=== PATIENT | male | born 1965 | race Caucasian/White ===

== ENCOUNTER 2020-12-09 19:34 | Emergency (ER) | payer BC ==
--- NOTE | 2020-12-09 20:18 | RAD REPORT ---
EXAM DESCRIPTION: CT - Head Brain Wo Cont - 12/09/2020 8:02 pm CLINICAL HISTORY: headache, elevated blood pressure COMPARISON: No comparisons TECHNIQUE: Axial 5 mm thick images of the head were obtained without IV contrast. All CT scans are performed using dose optimization technique as appropriate and may include automated exposure control or mA/KV adjustment according to patient size. FINDINGS: No intracranial hemorrhage, mass, edema or shift of mid-line structures. No acute infarcti on changes seen. No abnormal extra-axial fluid collections. Ventricles are normal. Mastoid air cells and visualized portions of the paranasal sinuses are clear. No acute bony findings. IMPRESSION: Negative non-contrast CT head examination.
[2020-12-09] MEDS ORDERED: ACETAMINOPHEN 325 MG TABLET ONE (20:36)
[2020-12-09 20:38] LABS: Absolute Lymphocytes (CBC) 1.2 K/uL (0.7-4.9); Hematocrit 36.7 % (39.6-49.0); Lymphocytes % 15.7 % (15.3-44.8); MPV 8.5 fL (7.6-11.3); RBC Red Blood Cell Count 4.72 M/uL (4.33-5.43)
[2020-12-09 20:39] LABS: Protime INR 1.03
[2020-12-09] MEDS ORDERED: MORPHINE 2 MG/ML SYR ONE (20:40)
[2020-12-09] MEDS ORDERED: ONDANSETRON 4 MG/2 ML VIAL ONE (20:40)
[2020-12-09 20:48] LABS: ALT/SGPT 44 U/L (12-78); AST/SGOT 15 U/L (15-37); Albumin 3.8 g/dL (3.4-5.0); Alkaline Phosphatase 66 U/L (45-117); BUN Blood Urea Nitrogen 13 mg/dL (7-18); Bicarbonate 28 mmol/L (21-32); Bilirubin Direct < 0.1 mg/dL (0-0.2); Bilirubin Total 0.3 mg/dL (0.2-1.0); Glucose Level 159 mg/dL (74-106); Magnesium 2.1 mg/dL (1.8-2.4); NT PRO-BNP 27 pg/mL (<125); Protein, Total 7.2 g/dL (6.4-8.2); Sodium Level 143 mmol/L (136-145); Troponin (Emerg Dept Use Only) < 0.02 ng/mL (0.0-0.045)
[2020-12-09 20:53] LABS: Potassium 2.7 mmol/L (3.5-5.1)
--- NOTE | 2020-12-09 21:22 | RAD REPORT ---
EXAM DESCRIPTION: RAD - Chest Single View - 12/09/2020 8:14 pm CLINICAL HISTORY: HTN, SOB COMPARISON: None TECHNIQUE: AP portable chest image was obtained 12/09/2020 8:14 pm . FINDINGS: Lungs are clear. Heart and vasculature are normal. No measurable pleural effusion and no p neumothorax. No acute bony abnormality seen. No acute aortic findings suspected. IMPRESSION: No acute cardiopulmonary process.
[2020-12-09] MEDS ORDERED: cloNIDine HCL 0.1 MG TAB ONE (21:34)
--- NOTE | 2020-12-09 21:50 | ER ---
Nurse's Notes [facility] Name: Mario Alberto Brown Age: 55 yrs Sex: Male : 1965 Arrival Date: 12/09/2020 Time: 19:36 Bed 17 Private MD: Diagnosis: Headache Presentation: 12/09 19:50 Chief complaint: Patient states: high BP and AUGUSTE for 2 days, BP at home 190/100, pain in em the back on neck, denies chest pain, reports nausea, took his BP medication this morning. Coronavirus screen: Client denies travel out of the [place] in the last 14 days. Ebola Screen: Patient negative for fever greater than or equal to 101.5 degrees Fahrenheit, and additional compatible Ebola Virus Disease symptoms Patient denies exposure to infectious person. Patient denies travel to an Ebola-affected area in the 21 days before illness onset. No symptoms or risks identified at this time. Initial Sepsis Screen: Does the patient meet any 2 criteria? HR > 90 bpm. No. Patient's initial sepsis screen is negative. Does the patient have a suspected source of infection? No. Patient's initial sepsis screen is negative. Risk Assessment: Do you want to hurt yourself or someone else? Patient reports no desire to harm self or others. Onset of symptoms was December 09, 2020. 19:50 Method Of Arrival: Ambulatory em 19:50 Acuity: GREG 2 em Triage Assessment: 22:00 Headache History: Denies prior headaches. General: Appears in no apparent distress. ll2 Pain: Also complains of. Pain: Complains of pain in right base of the skull and right occipital area and left base of the skull and left occipital area. Pain: Pain currently is 10 out of 10 on a pain scale. Pain began suddenly. Historical: - Allergies: 19:55 Codeine; em - Home Meds: 19:55 amlodipine 10 mg tab 1 tab once daily [Active]; hydrochlorothiazide 25 mg Oral tab 1 em tab once daily [Active]; - PMHx: 19:55 Hypertension; em - PSHx: 19:55 Hernia repair; em - Immunization history:: Adult Immunizations up to date. - Social history:: Smoking status: Patient denies any tobacco usage or history of. Screenin:00 Abuse screen: Denies threats or abuse. Nutritional screening: No deficits noted. ll2 Tuberculosis screening: No symptoms or risk factors identified. Fall Risk None identified. Assessment: 19:45 General: Appears in no apparent distress. Behavior is calm, cooperative, appropriate ll2 for age. Pain: Complains of pain in headache. Neuro: Level of Consciousness is awake, alert, obeys commands, Oriented to person, place, time, situation. Cardiovascular: Patient's skin is warm and dry. Respiratory: Airway is patent Respiratory effort is even, unlabored, Respiratory pattern is regular, symmetrical. GI: No signs and/or symptoms were reported involving the gastrointestinal system. : No signs and/or symptoms were reported regarding the genitourinary system. EENT: No signs and/or symptoms were reported regarding the EENT system. Derm: Skin is intact, is healthy with good turgor, Skin is pink, warm \T\ dry. Musculoskeletal: Circulation, motion, and sensation intact. Range of motion: intact in all extremities, limited in all extremities. Vital Signs: 19:45 BP 166 / 132; Pulse 100; Resp 18; Pulse Ox 99% on R/A; ll2 19:50 BP 166 / 132; Pulse 100; Resp 18; Temp 98.9; Pulse Ox 100% on R/A; Weight 111.13 kg; em Height 5 ft. 8 in. (172.72 cm); Pain 10/10; 20:46 BP 173 / 83; Pulse 88; Resp 20; Pulse Ox 100% on R/A; ll2 21:06 BP 171 / 85; Pulse 85; Resp 20; Pulse Ox 99% on R/A; ll2 19:50 Body Mass Index 37.25 (111.13 kg, 172.72 cm) em ED Course: 19:36 Patient arrived in ED. am4 19:43 Gutierrez Berry PA is PHCP. [facility] 19:43 Zi Stallings MD is Attending Physician. [facility] 19:50 Surinder Hodgson, RN is Primary Nurse. em 19:53 Jenn Hanks, EMILI is Primary Nurse. ll2 19:53 Triage completed. em 19:55 Arm band placed on. em 20:00 Patient has correct armband on for positive identification. Bed in low position. Call ll2 light in reach. Side rails up X 1. professor of religious studies on. Pulse ox on. NIBP on. 20:00 No provider procedures requiring assistance completed. ll2 20:01 CT Head Brain wo Cont In Process Unspecified. EDMS 20:14 XRAY Chest (1 view) In Process Unspecified. EDMS 20:20 Inserted saline lock: 20 gauge in right antecubital area, using aseptic technique. 4 Blood collected. 03 03:32 IV discontinued, intact, bleeding controlled, No redness/swelling at site. Pressure ll2 dressing applied. Administered Medications: 03 20:30 Not Given (Other Intervention Used): Tylenol 650 mg PO once ll2 20:33 Drug: morphine 2 mg Route: IVP; Site: right antecubital; ll2 21:04 Follow up: Response: No adverse reaction; RASS: Alert and Calm (0) ll2 20:33 Drug: Zofran (Ondansetron) 4 mg Route: IVP; Site: right antecubital; ll2 21:05 Follow up: Response: No adverse reaction ll2 21:15 Drug: cloNIDine 0.1 mg Route: PO; ll2 22:20 Follow up: Response: No adverse reaction ll2 21:46 Drug: K-Lyte Effervescent Tablet 50 mEq Route: PO; ll2 22:45 Follow up: Response: No adverse reaction ll2 Outcome: 21:49 Discharge ordered by MD. valdez 22:00 Condition: stable ll2 22:00 Discharge instructions given to family, Instructed on discharge instructions, follow up and referral plans. medication usage, Demonstrated understanding of Prescriptions given X 22:38 Patient left the ED. ll2 22:40 Discharged to home ambulatory. ll2 Signatures: Dispatcher [employer] EDOH Gutierrez Berry PA PA Surinder Almonte, RN RN Arnold Leonard 4 Jenn Hanks RN RN 2 Tanvi Bergman 4 Corrections: (The following items were deleted from the chart) 20:29 20:18 Tylenol 650 mg PO ll2 ll2 20:46 20:45 BP 166 / 132; Pulse 100bpm; Resp 18bpm; Pulse Ox 99% RA; ll2 ll2
--- NOTE | 2020-12-09 21:50 | EDPHYS ---
Physician Documentation [facility] Name: Mario Alberto Brown Age: 55 yrs Sex: Male : 1965 Arrival Date: 12/09/2020 Time: 19:36 Bed 17 Private MD: ED Physician Zi Stallings HPI: 12/09 19:53 This 55 yrs old Male presents to ER via Ambulatory with complaints of jmm Headache, High Blood Pressure. 19:53 The patient complains of pain to the left occipital area, left base of the skull, right jmm occipital area and right base of the skull. Onset: The symptoms/episode began/occurred gradually, 1 day(s) ago. Associated signs and symptoms: Pertinent negatives: altered mental status, fever, nausea, Photophobia rash, sinus congestion, vision changes, vision loss, weakness. This is a 55 year old male with a history of htn that presents to the ED with complaints of posterior headache beginning yesterday which was mild. 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 Denies weakness, chest pain, abdominal pain. . Historical: - Allergies: 19:55 Codeine; em - Home Meds: 19:55 amlodipine 10 mg tab 1 tab once daily [Active]; hydrochlorothiazide 25 mg Oral tab 1 em tab once daily [Active]; - PMHx: 19:55 Hypertension; em - PSHx: 19:55 Hernia repair; em - Immunization history:: Adult Immunizations up to date. - Social history:: Smoking status: Patient denies any tobacco usage or history of. ROS: 19:53 Constitutional: Negative for fever, chills, and weight loss, Cardiovascular: Negative jmm for chest pain, palpitations, and edema, Respiratory: Negative for shortness of breath, cough, wheezing, and pleuritic chest pain, Abdomen/GI: Negative for abdominal pain, nausea, vomiting, diarrhea, and constipation. 19:53 Neuro: Positive for headache. 19:53 All other systems are negative. Exam: 19:53 Constitutional: This is a well developed, well nourished patient who is awake, alert, jmm and in no acute distress. Head/Face: atraumatic. Eyes: EOMI, no conjunctival erythema appreciated ENT: Moist Mucus Membranes Neck: Trachea midline, Supple Chest/axilla: Normal chest wall appearance and motion. Cardiovascular: Regular rate and rhythm. No edema appreciated Respiratory: Normal respirations, no respiratory distress appreciated Abdomen/GI: Non distended, soft Back: Normal ROM Skin: General appearance color normal MS/ Extremity: Moves all extremities, no obvious deformities appreciated, no edema noted to the lower extremities Neuro: Awake and alert, normal gait Psych: Behavior is normal, Mood is normal, Patient is cooperative and pleasant Vital Signs: 19:45 BP 166 / 132; Pulse 100; Resp 18; Pulse Ox 99% on R/A; ll2 19:50 BP 166 / 132; Pulse 100; Resp 18; Temp 98.9; Pulse Ox 100% on R/A; Weight 111.13 kg; em Height 5 ft. 8 in. (172.72 cm); Pain 10/10; 20:46 BP 173 / 83; Pulse 88; Resp 20; Pulse Ox 100% on R/A; ll2 21:06 BP 171 / 85; Pulse 85; Resp 20; Pulse Ox 99% on R/A; ll2 19:50 Body Mass Index 37.25 (111.13 kg, 172.72 cm) em MDM: 20:03 Patient medically screened. [facility] 21:47 Data reviewed: vital signs, nurses notes. Counseling: I had a detailed discussion with [facility] the patient and/or guardian regarding: the historical points, exam findings, and any diagnostic results supporting the discharge/admit diagnosis, lab results, radiology results, the need for outpatient follow up, to return to the emergency department if symptoms worsen or persist or if there are any questions or concerns that arise at home. ED course: Patient is alert and non toxic in appearance in the ED. No signs of resp distress. patient is advised to follow up with pcp and otherwise given strict return precautions. Patient understood and agrees with the plan of care. . 12/09 19:53 Order name: Basic Metabolic Panel [facility] 12/09 19:53 Order name: CBC with Diff [facility] 12/09 19:53 Order name: LFT's; Complete Time: 20:55 [facility] 12/09 19:53 Order name: Magnesium; Complete Time: 20:55 [facility] 12/09 19:53 Order name: NT PRO-BNP; Complete Time: 20:55 [facility] 12/09 19:53 Order name: PT-INR; Complete Time: 20:52 [facility] 12/09 19:53 Order name: Troponin (emerg Dept Use Only); Complete Time: 20:55 [facility] 12/09 19:53 Order name: XRAY Chest (1 view); Complete Time: 21:24 [facility] 12/09 19:53 Order name: CT Head Brain wo Cont; Complete Time: 20:26 [facility] 12/09 19:53 Order name: Basic Metabolic Panel; Complete Time: 20:55 EDMS 12/09 19:53 Order name: CBC with Automated Diff; Complete Time: 20:52 EDMS 12/09 19:53 Order name: EKG; Complete Time: 19:54 [facility] 12/09 19:53 Order name: Cardiac monitoring; Complete Time: 19:53 [facility] 12/09 19:53 Order name: EKG - Nurse/Tech; Complete Time: 19:53 [facility] 12/09 19:53 Order name: IV Saline Lock; Complete Time: 20:17 [facility] 12/09 19:53 Order name: Labs collected and sent; Complete Time: 20:20 [facility] 12/09 19:53 Order name: O2 Per Protocol; Complete Time: 19:53 [facility] 12/09 19:53 Order name: O2 Sat Monitoring; Complete Time: 19:53 jmm Administered Medications: 20:30 Not Given (Other Intervention Used): Tylenol 650 mg PO once ll2 20:33 Drug: morphine 2 mg Route: IVP; Site: right antecubital; ll2 21:04 Follow up: Response: No adverse reaction; RASS: Alert and Calm (0) ll2 20:33 Drug: Zofran (Ondansetron) 4 mg Route: IVP; Site: right antecubital; ll2 21:05 Follow up: Response: No adverse reaction ll2 21:15 Drug: cloNIDine 0.1 mg Route: PO; ll2 22:20 Follow up: Response: No adverse reaction ll2 21:46 Drug: K-Lyte Effervescent Tablet 50 mEq Route: PO; ll2 22:45 Follow up: Response: No adverse reaction ll2 Disposition: 12/10 05:09 Co-signature as Attending Physician, Zi Stallings MD I agree with the assessment and darell plan of care. Disposition: 12/09/20 21:49 Discharged to Home. Impression: Headache. - Condition is Stable. - Discharge Instructions: General Headache Without Cause. - Medication Reconciliation Form, Thank You Letter, Antibiotic Education, Prescription Opioid Use form. - Follow up: Private Physician; When: Tomorrow; Reason: Recheck today's complaints, Continuance of care, Re-evaluation by your physician. Signatures: Dispatcher [employer] Zi Charles MD MD cha Mickail, Joel, PA PA jmm Munoz, Edgar, RN RN em Yohan Cleveland, EXERCISE EQUIPMENT REPAIR TECHNICIAN-C EXERCISE EQUIPMENT REPAIR TECHNICIAN-Cla1 Jenn Hanks RN RN ll2 Corrections: (The following items were deleted from the chart) 12/09 22:38 21:49 12/09/2020 21:49 Discharged to Home. Impression: Headache. Condition is Stable. ll2 Forms are Medication Reconciliation Form, Thank You Letter, Antibiotic Education, Prescription Opioid Use. Follow up: Private Physician; When: Tomorrow; Reason: Recheck today's complaints, Continuance of care, Re-evaluation by your physician. courtney
[2020-12-09] MEDS ORDERED: POTASSIUM 25 MEQ EFFERV TAB ONE (21:58)
[2020-12-10 03:07] VITALS: TEMP 98.9
[2020-12-10 03:11] VITALS: BP 171/85; O2SAT 99
--- NOTE | 2020-12-10 22:27 | EKG ---
Test Date: 2020-12-09 Test Time: 19:50:37 Press Tender Star Signal: LL MEASUREMENT RESULTS: Intervals: Rate: 98 NH: 142 QRSD: 102 QT: 372 QTc: 474 [place]: P: 10 NH: 142 QRS: 2 T: 56 INTERPRETIVE STATEMENTS: Normal sinus rhythm Incomplete right bundle branch block Borderline ECG No previous ECG available for comparison Electronically Signed On 12-10-20 22:25:33 FLEXOGRAPHIC PRESS SET UP OPERATOR by William Martinez
== END 2020-12-09 22:38 | disposition home or self-care (01) ==
LOC: ER 19:34
DX: R51.9 Headache, unspecified (principal); I10 Essential (primary) hypertension; Z88.5 Allergy status to narcotic agent
CPT/HCPCS: 93005; 85025; 80048; 36415; 83735; 85610; 80076; 84484; 83880; 70450; 71045; 96375; 96374; 99284; J2270; J2405